=== PATIENT | female | born 1990 | race Caucasian/White ===

== ENCOUNTER 2024-06-28 13:20 | Emergency (ER) | payer OTHER, SELFPAY ==
[2024-06-28 13:25] VITALS: BP 112/81
[2024-06-28] MEDS: TORADOL 30 MG IV (14:55)
[2024-06-28] MEDS: DECADRON 10 MG IV (14:56)
--- NOTE | 2024-06-28 15:01 | ED.GENMED ---
History of Present Illness
General
Chief Complaint: Back Pain
Source: patient
Exam Limitations: none
Time Seen by Provider: 06/28/24 14:23
Nursing documentation reviewed up to this point in time: agreed with
History of Present Illness
History of Present Illness:
Patient to ED with complaint of low back pain. States she woke this AM and area was tight. She states she bent forward and pain became severe. Unable to move. States she took ibuprofen with minimal relief. Brought to ED by mother for eval.
Denies fever/chills, recent illness. Pain radiates to bilateral thighs. No weakness in extremities. No saddle paresthesia. No bowel or bladder symptoms.
Past History
Past History
ED Past Medical History: None
Review of Systems
Review of Systems
Allergies reviewed?: Yes
All Other Systems: ROS reviewed and negative except as documented in HPI and ROS
Constitutional: Reports no symptoms
EENT: Reports no symptoms
Respiratory: Reports no symptoms
Cardiac: Reports no symptoms
ABD/GI: Reports no symptoms
: Reports no symptoms
Musculoskeletal: Reports back pain
Skin: Reports no symptoms
Neurological: Reports no symptoms
Psychiatric: Reports no symptoms
Phy Exam
General Physical Exam
General Presentation: well appearing and moderate distress
General age: appears stated age
General Skin: warm and dry
General Habitus: normal
General Mental: alert
Reflexes
Reflexes: +3: Left achilles and +3: Right achilles
Musculoskeletal Exam
Musculoskeletal Exam: back pain (paravertebral low back pain. Radiation to bilateral ant. thighs.) and neuro vasc intact
Skin Exam
Skin Exam: normal color, warm/dry and no rash
Psychiatric Exam
Psychiatric Exam: normal mood/affect
Course
Orders/Labs/Results
Orders:
Orders
06/28/24 14:42
Dexamethasone Sod Phosphate [Decadron] 10 mg IV NOW STA
Ketorolac [Toradol] 30 mg IV NOW STA
Lumbar Spine Complete, 4 View [CR Lumbar Spine Comp Min 4 Vw*] Urgent
Comment:
Reason For Exam: low back pain
06/28/24 14:57
Urinalysis Reflex To Culture Urgent
Date Specimen was Collected: 06/28/24
Time Specimen was Collected: 14:57
Urine Microscopic Reflex Cult Urgent
06/28/24 16:04
HYDROmorphone [Dilaudid] 0.5 mg IV NOW STA
Ondansetron Injectable [Zofran] 4 mg IV NOW STA
Abnormal Lab Results
06/28/24
14:57
Ur Occult Blood Reflex 1+ A
(Negative)
Urine Bacteria (Reflex) Few A
(Negative)
Vital Signs
Initial and Last Documented VS:
Initial Vital Signs
Temp Pulse Resp BP Pulse Ox
98.2 F 70 18 112/81 100
06/28/24 13:25 06/28/24 13:25 06/28/24 13:25 06/28/24 13:25 06/28/24 13:25
Last Documented Vital Signs
Temp Pulse Resp BP Pulse Ox
98.2 F 70 18 112/81 100
06/28/24 13:25 06/28/24 13:25 06/28/24 13:25 06/28/24 13:25 06/28/24 13:25
*Radiology
Radiology exam reviewed: radiology read reviewed
*Critical Care Note
Total Time (30-74mins, 75-104mins- exclusive of procedures): Not Applicable
ED Attending Note
-
Portions of this chart may have been created with voice recognition software.� Occasional wrong word or��sound alike� substitutions may have occurred due to the inherent limitations of voice recognition software.
Discharge Plan
Departure
Patient Disposition: Home (Routine Discharge)
Date of Disposition: 06/28/24
Time of Disposition: 16:40
Patient with high blood pressure during this ER visit?: No
Condition: Good
Covid-19: Not Applicable
Discharge Problem:
Low back pain
Instructions: Low Back Pain (DC)
Prescriptions:
New
oxycodone 5 mg capsule
5 mg PO Q4H PRN (Reason: Pain) Qty: 14 0RF
Referrals:
Kevin Weeks, DO [Non-Admitting Privileges] - As needed
Rosalio Mayo, [Family Provider] - Follow up in 2-3 days
Stand Alone Forms: Return to Work
Interventions
Interventions:
*Risk Screen - Suicide Last Done: 06/28/24 13:25
*General Assessment Last Done: 06/28/24 15:00
*Neglect/Abuse Screening Last Done: 06/28/24 15:00
ED- Fall Risk Assessment Last Done: 06/28/24 15:00
*ED COVID-19 Vaccine History Last Done: 06/28/24 15:00
*Nursing Disposition Last Done: 06/28/24 17:15
ED-Musculoskeletal Assessment Last Done: 06/28/24 15:00
Discharge Date and Time
Discharge Date/Time: 06/28/24 17:15
Print Language: PANAMANIAN
[2024-06-28 15:22] LABS: Urine Albumin Negative (Neg - Trace); Urine Bilirubin Negative (Negative); Urine Character Clear (Clear); Urine Color Yellow; Urine Glucose Negative (Negative); Urine Ketone Negative (Negative); Urine Leukocyte Negative (Negative); Urine Nitrite Negative (Negative); Urine Occult Blood 1+ (Negative); Urine Urobilinogen Negative (Neg - 1+)
[2024-06-28 15:45] LABS: Urine Squamous Cell >30 /LPF (Few)
[2024-06-28 15:46] LABS: Urine Bacteria Few (Negative); Urine Red Blood Cell 0-2 /HPF (0-2)
[2024-06-28] MEDS: ZOFRAN 4 MG IV (16:14)
[2024-06-28] MEDS: DILAUDID 0.5 MG IV (16:14)
== END 2024-06-28 17:15 | disposition home or self-care (01) ==
LOC: EMR 13:20
PROVIDERS: Nurse Practitioner; EMERGENCY PHYSICIAN Emergency Medicine; FAMILY PHYSICIAN Family Medicine
DX: M54.50 Low back pain, unspecified (principal)
CPT/HCPCS: 99283; 96374; 96375; 72110; 81003; 81015

== ENCOUNTER 2025-03-17 10:11 | Emergency (ER) | payer OTHER, SELFPAY ==
[2025-03-17 10:11] VITALS: BMI 25.1
[2025-03-17 10:18] VITALS: BP 154/91
[2025-03-17] MEDS: LIDOCAINE 4% PATCH 1 PATCH TOPICAL (11:59)
--- NOTE | 2025-03-17 11:59 | ED.GENMED ---
History of Present Illness
General
Chief Complaint: Back Pain
Source: patient
Exam Limitations: none
Time Seen by Provider: 03/17/25 11:17
Nursing documentation reviewed up to this point in time: agreed with
History of Present Illness
History of Present Illness:
Patient is a 34-year-old healthy female who presents to the emergency department for evaluation of 6 weeks of progressively worsening left lower back pain. She states she describes it as a 'charley horse in her lower back. Pain is worse with
certain movements and positions.
She also describes a burning pain that is traveling down her left leg.
She denies any fever, chills, dysuria or hematuria. She denies any numbness/tingling or weakness in lower extremities. No bowel/bladder incontinence.
She denies any history of recent trauma or falls.
She states she had acute onset back pain back in June which was treated supportively along with a few sessions of PT.
She contacted her primary care provider regarding back pain today who referred her to the emergency department for imaging.
Past History
Past History
ED Past Medical History: None
Review of Systems
Review of Systems
Allergies reviewed?: Yes
All Other Systems: ROS reviewed and negative except as documented in HPI and ROS
Phy Exam
Physical Exam
Physical Exam:
Vitals: Mildly hypertensive, otherwise vital signs stable. Afebrile
General: Patient is well appearing, no acute distress
Skin: Warm and dry, no rashes or lesions
Head: Normocephalic, atraumatic
Eyes: Sclera nonicteric.
Throat: Protecting airway
Neck: Normal ROM
Cardiac: Regular rate and rhythm. 2+ palpable radial pulses bilaterally
Pulm: Normal respiratory effort. Lungs clear bilaterally
Abdomen: No abdominal tenderness.
Back: Reproducible tenderness of paraspinal muscles in left lumbar region. No CVA tenderness. No rash or ecchymoses.
Extremities: No evidence of cyanosis or edema. Strength 5/5 in bilateral upper and lower extremities. Sensation intact
Neuro: AAOx3. No focal neurologic deficits.
Psychiatric: Normal affect.
Course
Orders/Labs/Results
Orders:
Orders
03/17/25 11:55
Acetaminophen [Tylenol] 1,000 mg PO NOW STA
Ketorolac [Toradol] 15 mg IM NOW STA
Lidocaine [Lidocaine 4% Patch] 1 patch TOPICAL NOW STA
Apply Lidocaine patch(s) to:: left lower back
Vital Signs
Initial and Last Documented VS:
Initial Vital Signs
Temp Pulse Resp BP Pulse Ox
97.8 F 92 19 154/91 100
03/17/25 10:18 03/17/25 10:18 03/17/25 10:18 03/17/25 10:18 03/17/25 10:18
Last Documented Vital Signs
Temp Pulse Resp BP Pulse Ox
97.8 F 92 19 154/91 100
03/17/25 10:18 03/17/25 10:18 03/17/25 10:18 03/17/25 10:18 03/17/25 12:04
MDM/Problems Addressed
Differential Diagnosis Includes:
Not limited to: Muscle spasm, muscle strain, sciatica/radiculopathy, etc.
MDM/Problems Addressed:
34-year-old female with progressively worsening left lower back pain for the past 6 weeks. No associated infectious symptoms or neurologic symptoms such as numbness/tingling, weakness of lower extremities or loss of bowel/bladder control. She does
have a history of similar symptoms in the past. Vitals are stable. On exam, patient appears uncomfortable due to pain however is not toxic. Cardio/pulmonary assessment unremarkable. Abdominal exam benign. She does have mild tenderness in left
spinal muscles in lumbar region.
Clinical picture consistent with musculoskeletal etiology with possible radicular. No neurologic symptom during for spinal cord compression. Do not suspect vascular catastrophe. No symptoms consistent with urinary etiology. Patient had x-ray
imaging of lumbar spine in June of this past year when she presented with similar back pain. She has had no additional trauma and do not feel further imaging indicated at this time.
Symptoms treated with lidocaine patch, Tylenol, and Toradol in ED. She is able to ambulate and feels comfortable with discharge home. Will prescribe muscle relaxer and course of steroids given radicular component. Advised physical therapy
outpatient and continue follow-up with her primary care for possible outpatient MRI. Strict return precautions discussed.
Chronic conditions affecting care:
N/A
Acute Exacerbation and/or Progression of Chronic Illness:
N/A
*Pulse Oximetry
SaO2: 100
Oxygen Mode of Delivery: Room air
Patient hypoxic: no
*EKG
Interpreted by ED Provider?: NA
*Pill Coater Interpretation
Rate: Pill Coater- N/A
*Critical Care Note
Total Time (30-74mins, 75-104mins- exclusive of procedures): Not Applicable
Data Reviewed
Review of Other/Old Records Reveals: Discharge Summary (ED discharge summary from visit 06/28/2024 after visit for back pain)
ED Attending Note
-
Portions of this chart may have been created with voice recognition software.� Occasional wrong word or��sound alike� substitutions may have occurred due to the inherent limitations of voice recognition software.
Discharge Plan
Departure
Patient Disposition: Home (Routine Discharge)
Date of Disposition: 03/17/25
Time of Disposition: 13:46
Patient with high blood pressure during this ER visit?: Yes
Discharge Problem:
Lower back pain
Instructions: Low Back Pain (DC), Radiculopathy (DC), BLOOD PRESSURE
Prescriptions:
New
prednisone 10 mg Tablet
See Rx Instructions .ROUTE .COMPLEX Qty: 30 0RF
Rx Instructions:
Take By Mouth:
40 mg daily x3 days, 30 mg daily x3 days,
20 mg daily x3 days, 10 mg daily x3 days.
cyclobenzaprine 10 mg tablet
10 mg PO HS PRN (Reason: muscle spasm) Qty: 10 0RF
No Action
oxycodone 5 mg capsule
5 mg PO Q4H PRN (Reason: Pain) Qty: 14 0RF
Referrals:
Rosalio Mayo DO [Family Provider, [facility]] - Follow up in 1 week
Activity Restrictions/Additional Instructions:
RETURN TO THE EMERGENCY DEPARTMENT WITH ANY INTRACTABLE PAIN, INABILITY TO AMBULATE, NUMBNESS/TINGLING OR WEAKNESS IN THE LOWER EXTREMITIES, LOSS OF BOWEL/BLADDER CONTROL, FEVERS OR DIFFICULTY URINATING, OR ANY OTHER CONCERNS
- Continue to take Tylenol and/or Motrin for low back pain. You can apply topical lidocaine patches. A prescription for a muscle relaxer has been sent to your pharmacy which you can take prior to bed. This may cause drowsiness you should not take
prior to driving.
- A course of steroids has also been sent to your pharmacy.
- Please limit activities which further aggravate back pain.
- Follow-up with primary care for further evaluation/management. You should restart physical therapy. If symptoms persist, you may require MRI imaging of your lumbar spine which your primary care provider can order as an outpatient.
Monitor your symptoms very closely and return to the emergency department with any acute worsening/new symptoms or any other concerns
Interventions
Interventions:
*Risk Screen - Suicide Last Done: 03/17/25 10:18
*General Assessment Last Done: 03/17/25 10:18
*Neglect/Abuse Screening Last Done: 03/17/25 10:18
*ED- Fall Risk Assessment Last Done: 03/17/25 11:19
*ED COVID-19 Vaccine History Last Done: 03/17/25 11:19
*ED Influenza Vaccine History Last Done: 03/17/25 11:19
*Nursing Disposition Last Done: 03/17/25 14:04
ED-Musculoskeletal Assessment Last Done: 03/17/25 11:19
Discharge Date and Time
Discharge Date/Time: 03/17/25 14:04
Print Language: KAZAKH
[2025-03-17] MEDS: TYLENOL 1000 MG PO (12:00)
[2025-03-17] MEDS: TORADOL 15 MG IM (12:00)
== END 2025-03-17 14:04 | disposition home or self-care (01) ==
LOC: EMR 10:11
PROVIDERS: EMERGENCY PHYSICIAN Emergency Medicine; FAMILY PHYSICIAN Family Medicine
DX: M54.50 Low back pain, unspecified (principal)
CPT/HCPCS: 99282; 96372